=== PATIENT | female | born 1970 | race Two or more races ===

== ENCOUNTER 2018-10-31 21:56 | Inpatient (IN) | payer OTHER ==
[~2018-10-31] VITALS: Ht 170.2 cm; Wt 125.8 kg
[2018-10-31] MEDS ORDERED: ONDANSETRON HCL 4MG/2ML INJ IV STA (22:54)
[2018-10-31] MEDS ORDERED: MORPHINE SULFATE 4 MG/ML CPJ (NOT FOR IM USE) IV STA (22:54)
[2018-10-31] MEDS ORDERED: SODIUM CHLORIDE 0.9% 1,000 ML IV ONE (22:54)
[2018-10-31] MEDS ORDERED: METOCLOPRAMIDE HCL 10MG/2ML VIAL IV ONE (23:45)
[2018-10-31] MEDS ORDERED: LORAZEPAM 2MG/ML CPJ IV ONE (23:45)
[2018-10-31] MEDS ORDERED: ONDANSETRON HCL 4MG/2ML INJ IV ONE (23:45)
[2018-11-01] VITALS (58 sets, daily range): BP systolic 60–177; BP diastolic 37–99
[2018-11-01] LABS: HEMATOCRIT. 26.8 % (36.0-48.0); HEMOGLOBIN. 7.9 g/dL (12.0-16.0); MEAN CORPUSCULAR HEMOGLOBIN 18.8 pg (28.0-32.0); MEAN CORPUSCULAR VOLUME 64.3 fL (81.0-99.0); MEAN PLATELET VOLUME 9.5 fl (7.4-10.4); PLATELET 201 x1000/uL (130-400); RED BLOOD CELL COUNT 4.17 mill/uL (4.2-5.4); RED CELL DISTRIBUTION WIDTH 19.3 % (11.6-14.6)
[2018-11-01 00:03] LABS: PROTHROMBIN TIME 10.5 sec (9.6-11.0)
[2018-11-01 00:12] LABS: CHLORIDE 106 mEq/L (98-107)
[2018-11-01 00:40] LABS: PLATELET ESTIMATE NORMAL
[2018-11-01] MEDS ORDERED: KETOROLAC 30MG/ML VIAL IV ONE (00:45)
[2018-11-01] MEDS ORDERED: HYDROMORPHONE HCL/PF 2MG/ML CPJ IV NR ×2 (01:15→12:45)
[2018-11-01 01:18] LABS: CLARITY URINE CLEAR (CLEAR); COLOR URINE YELLOW (YELLOW); KETONES URINE 3+ (NEGATIVE); LEUKOCYTE ESTERASE URINE NEGATIVE (NEGATIVE); NITRITE URINE NEGATIVE (NEGATIVE); OCCULT BLOOD URINE NEGATIVE (NEGATIVE); PH URINE 5.5 (4.5-8.0); PROTEIN URINE 2+ (NEGATIVE); SPECIFIC GRAVITY URINE 1.032 (1.005-1.030)
[2018-11-01 01:48] LABS: HEMATOCRIT 26.4 % (36.0-48.0); HEMOGLOBIN 7.7 g/dL (12.0-16.0)
[2018-11-01 02:50] LABS: INR 1.1; PARTIAL THROMBOPLASTIN TIME 22.9 sec (23.4-31.0); PROTHROMBIN TIME 10.9 sec (9.6-11.0)
[2018-11-01] MEDS ORDERED: HYDROMORPHONE HCL/PF 2MG/ML CPJ IV PRN (06:00)
[2018-11-01] MEDS ORDERED: PIPERACILLIN/TAZ 3.375G PREMIX 50 ML IV SCH ×2 (06:00→08:00)
[2018-11-01] MEDS ORDERED: ONDANSETRON HCL 4MG/2ML INJ IV PRN (06:00)
[2018-11-01] MEDS: PANTOPRAZOLE SODIUM 40 MG/VIAL IV SCH (07:04)
[2018-11-01] MEDS ORDERED: DEXT 5%/0.45% NACL KCL 20MEQ/L 1,000 ML IV SCH (08:00)
[2018-11-01 10:50] LABS: MEAN CORPUSCULAR VOLUME 67.7 fL (81.0-99.0); MEAN PLATELET VOLUME 9.7 fl (7.4-10.4); PLATELET 226 x1000/uL (130-400); RED BLOOD CELL COUNT 3.68 mill/uL (4.2-5.4); RED CELL DISTRIBUTION WIDTH 19.8 % (11.6-14.6)
[2018-11-01] MEDS ORDERED: IPRATROPIUM/ALBUTEROL 0.5-3(2.5)MG/3ML NEB HHN PRN (11:00)
[2018-11-01] MEDS ORDERED: SODIUM CHLORIDE 0.9% 500 ML IV ONE (11:00)
[2018-11-01] MEDS ORDERED: NOREPINEPHRINE 8 MG in DEXT 5% WATER 492 ML IV PRN (11:00)
[2018-11-01 11:06] LABS: HEMATOCRIT. 24.9 % (36.0-48.0)
[2018-11-01 11:13] LABS: BG BASE EXCESS -16.9 mmol/L (-2.0-2.0); BG CARBOXYHEMOGLOBIN 0.9 % (0.5-1.5); BG DEOXYHEMOGLOBIN 2.8 % (0.0-5.0); BG METHEMOGLOBIN 0.3 % (0.0-1.5); BG OXYGEN SATURATION 97.2 % (92.0-98.5); BG PCO2 27.5 mmHg (35.0-45.0); BG PH 7.178 (7.350-7.450); BG PO2 113.1 mmHg (75.0-100.0); BG SAMPLE SITE RIGHT RADIAL; BG TOTAL HEMOGLOBIN 7.7 g/dL (12.0-18.0); BG VENT MODE NASAL CANNULA
[2018-11-01] MEDS ORDERED: NOREPINEPHRINE BITARTRATE 1MG/ML 4ML IV ONE (11:17)
[2018-11-01] MEDS ORDERED: SODIUM BICARBONATE 8.4% 1 MEQ/ML 50ML SYR IV ONE ×2 (11:22→12:45)
[2018-11-01] MEDS ORDERED: SODIUM BICARBONATE 50 MEQ in DEXTROSE 5% WATER 1,000 ML IV ONE (11:30)
[2018-11-01 11:38] LABS: PLATELET ESTIMATE NORMAL
[2018-11-01] MEDS ORDERED: SODIUM BICARBONATE 8.4% 1 MEQ/ML 50ML SYR IV NR (11:45)
[2018-11-01] MEDS ORDERED: ETOMIDATE 2MG/ML 10ML VIAL IV ONE (11:50)
[2018-11-01] MEDS ORDERED: VECURONIUM BROMIDE 10 MG/VIAL IV ONE (11:50)
[2018-11-01] MEDS ORDERED: SODIUM CHLORIDE 0.9% 10ML VIAL ONE (11:50)
[2018-11-01] MEDS ORDERED: MIDAZOLAM HCL 5 MG/5 ML VIAL IV NR (12:12)
[2018-11-01] MEDS ORDERED: MIDAZOLAM HCL 2 MG/2 ML VIAL ONE (12:17)
[2018-11-01] MEDS ORDERED: ALBUMIN HUMAN 12.5G/250ML (5%) IV ONE (12:36)
[2018-11-01] MEDS ORDERED: LIDOCAINE HCL 1% 20ML VIAL (Pyxis) INJ ONE (12:44)
[2018-11-01] MEDS ORDERED: MIDAZOLAM HCL 2 MG/2 ML VIAL IV ONE (12:45)
[2018-11-01] MEDS ORDERED: CEFAZOLIN SODIUM 1000MG/VIAL ONE (12:55)
[2018-11-01] MEDS ORDERED: ROCURONIUM BROMIDE 10MG/ML VIAL 5ML IV ONE (13:02)
[2018-11-01 14:53] LABS: *AMPHETAMINES SCREEN URINE NEGATIVE (NEGATIVE)
[2018-11-01 14:54] LABS: *BARBITURATES SCREEN URINE NEGATIVE (NEGATIVE); *BENZODIAZEPINES SCREEN URINE NEGATIVE (NEGATIVE); *COCAINE SCREEN URINE NEGATIVE (NEGATIVE); METHADONE URINE SCREEN NEGATIVE (NEGATIVE)
[2018-11-01 14:55] LABS: CANNABINOID URINE SCREEN PRESUMTIVE POSITIVE (NEGATIVE); OPIATES URINE SCREEN PRESUMTIVE POSITIVE (NEGATIVE); PHENCYCLIDINE URINE SCREEN NEGATIVE (NEGATIVE)
[2018-11-01] MEDS: NACL IV SCH (15:21)
[2018-11-01] MEDS: DEXT IV SCH (15:21)
[2018-11-01] MEDS: SODIUM BICARBONATE IV SCH (15:21)
[2018-11-01 15:34] LABS: BASOPHILS % 0.3 % (0.0-2.0); HEMATOCRIT. 32.4 % (36.0-48.0); HEMOGLOBIN. 10.1 g/dL (12.0-16.0); LYMPHOCYTES % 16.7 % (20.0-50.0); MEAN CORPUSCULAR HEMOGLOBIN 23.4 pg (28.0-32.0); MEAN CORPUSCULAR VOLUME 74.8 fL (81.0-99.0); MEAN PLATELET VOLUME 9.9 fl (7.4-10.4); MONOCYTES % 2.2 % (2.0-8.0); NEUTROPHILS % 80.8 % (40.0-76.0); PLATELET 129 x1000/uL (130-400); RED BLOOD CELL COUNT 4.32 mill/uL (4.2-5.4); RED CELL DISTRIBUTION WIDTH 24.1 % (11.6-14.6)
[2018-11-01 15:37] LABS: UCG SCREEN NEGATIVE
[2018-11-01] MEDS ORDERED: VANCOMYCIN 2,000 MG in DEXT 5% WATER 500 ML IV NR (16:00)
[2018-11-01 16:02] LABS: PLATELET ESTIMATE SLIGHTLY DECREASED
[2018-11-01 16:17] LABS: BG BASE EXCESS -11.5 mmol/L (-2.0-2.0); BG CARBOXYHEMOGLOBIN 0.7 % (0.5-1.5); BG DEOXYHEMOGLOBIN 0.3 % (0.0-5.0); BG FRACTION INSPIRED OXYGEN 100; BG METHEMOGLOBIN 0.1 % (0.0-1.5); BG OXYGEN SATURATION 99.7 % (92.0-98.5); BG OXYHEMOGLOBIN 98.9 % (94.0-97.0); BG PCO2 30.3 mmHg (35.0-45.0); BG PH 7.281 (7.350-7.450); BG PO2 562.4 mmHg (75.0-100.0); BG SAMPLE SITE A-LINE; BG TIDAL VOLUME(mL) 500 mL; BG TOTAL HEMOGLOBIN 11.6 g/dL (12.0-18.0); BG VENT MODE VENT - A/C; BG VENT RATE 12 set
[2018-11-01] MEDS: PROPOFOL 10MG/ML 100ML 100 ML IV PRN (16:38)
[2018-11-01] MEDS ORDERED: PHYTONADIONE 10MG/ML AMP SUBCUT NR (17:45)
[2018-11-01] MEDS: INSULIN LISPRO 100 UNITS/ML SUBCUT SCH (18:00)
[2018-11-01] MEDS ORDERED: AMIKACIN SULFATE 250 MG in SODIUM CHLORIDE 0.9% 100 ML IV NR (18:00)
[2018-11-01 18:05] LABS: HEMATOCRIT 32.5 % (36.0-48.0); HEMOGLOBIN 10.3 g/dL (12.0-16.0)
[2018-11-01] MEDS: BLOOD SUGAR DIAGNOSTIC STRIP TEST SCH ×2 (18:05→18:06)
[2018-11-01 18:07] LABS: CHLORIDE 114 mEq/L (98-107)
[2018-11-01 18:13] LABS: PHOSPHORUS 4.4 mg/dL (2.5-4.9)
[2018-11-01 18:33] LABS: D-DIMER 15.39 mg/L FEU (<0.50); INR 1.1; PARTIAL THROMBOPLASTIN TIME 29.1 sec (23.4-31.0); PROTHROMBIN TIME 11.7 sec (9.6-11.0)
[2018-11-01] MEDS ORDERED: WATER IV PRN (20:32)
[2018-11-01] MEDS ORDERED: DEXT 5% IV PRN (20:32)
[2018-11-01] MEDS ORDERED: NOREPINEPHRINE IV PRN (20:32)
[2018-11-01] MEDS: IPRATROPIUM/ALBUTEROL 0.5-3(2.5)MG/3ML NEB HHN SCH (20:34)
[2018-11-01 23:38] LABS: HEMOGLOBIN 12.5 g/dL (12.0-16.0)
[2018-11-02] VITALS (104 sets, daily range): BP systolic 29–258; BP diastolic 16–206
[2018-11-02] MEDS: MEROPENEM 1,000 MG in SODIUM CHLORIDE 0.9% 100 ML IV SCH ×3 (00:04→21:41)
[2018-11-02] MEDS: DEXT IV SCH ×3 (00:16→19:09)
[2018-11-02] MEDS: SODIUM BICARBONATE IV SCH ×3 (00:16→19:09)
[2018-11-02] MEDS: PROPOFOL 10MG/ML 100ML 100 ML IV PRN ×3 (00:16→11:30)
[2018-11-02] MEDS: NACL IV SCH ×3 (00:16→19:09)
[2018-11-02] MEDS: IPRATROPIUM/ALBUTEROL 0.5-3(2.5)MG/3ML NEB HHN SCH ×2 (00:29→20:44)
[2018-11-02] MEDS: BLOOD SUGAR DIAGNOSTIC STRIP TEST SCH ×5 (00:36→18:00)
[2018-11-02] MEDS: NOREPINEPHRINE 32 MG in DEXT 5% WATER 468 ML IV PRN (02:23)
[2018-11-02] MEDS ORDERED: ALBUMIN HUMAN 25GM/500ML (5%) IV NR (03:00)
[2018-11-02] MEDS ORDERED: DEXT 10% WATER 1,000 ML IV SCH (03:45)
[2018-11-02] MEDS: DEXTROSE 50% WATER 50ML SYRINGE IV PRN ×2 (03:58→06:23)
[2018-11-02] MEDS ORDERED: DEXTROSE 50% WATER 50ML SYRINGE IV NR (04:00)
[2018-11-02] MEDS: PHENYLEPHRINE 80 MG in DEXT 5% WATER 492 ML IV PRN ×3 (05:12→19:10)
[2018-11-02] MEDS: VASOPRESSIN 10 UNIT in SODIUM CHLORIDE 0.9% 99.5 ML IV SCH ×5 (05:28→21:42)
[2018-11-02 05:49] LABS: HEMATOCRIT. 32.5 % (36.0-48.0); HEMOGLOBIN. 9.8 g/dL (12.0-16.0); MEAN CORPUSCULAR HEMOGLOBIN 23.7 pg (28.0-32.0); MEAN CORPUSCULAR VOLUME 78.3 fL (81.0-99.0); RED BLOOD CELL COUNT 4.15 mill/uL (4.2-5.4)
[2018-11-02 05:53] LABS: CHLORIDE 115 mEq/L (98-107)
[2018-11-02] MEDS: INSULIN LISPRO 100 UNITS/ML SUBCUT SCH ×3 (06:00→12:00)
[2018-11-02 06:15] LABS: LDL CHOLESTEROL 30 mg/dL (5-100)
[2018-11-02 06:16] LABS: HDL CHOLESTEROL 36 mg/dL (40-59); T4 FREE 1.25 ng/dL (0.76-1.46)
[2018-11-02] MEDS ORDERED: DEXTROSE 50% WATER 50ML SYRINGE IV ONE (06:30)
[2018-11-02 07:28] LABS: PLATELET 84 x1000/uL (130-400)
[2018-11-02 07:33] LABS: NUCLEATED RED BLOOD CELLS 3 /100 WBC
[2018-11-02 07:34] LABS: PLATELET ESTIMATE DECREASED
[2018-11-02] MEDS ORDERED: SODIUM CHLORIDE 10% FOR INH 15ML VIAL NEB INH SCH (08:00)
[2018-11-02] MEDS ORDERED: VANCOMYCIN 1250MG in DEXTROSE 5% WATER 250ML IV SCH (08:00)
[2018-11-02] MEDS: PANTOPRAZOLE SODIUM 40 MG/VIAL IV SCH (08:31)
[2018-11-02 09:02] LABS: BG CARBOXYHEMOGLOBIN 0.3 % (0.5-1.5); BG FRACTION INSPIRED OXYGEN 100; BG HCO3 ACT 9.8 mmol/L (22.0-26.0); BG OXYHEMOGLOBIN 95.7 % (94.0-97.0); BG PH 7.289 (7.350-7.450); BG PO2 89.5 mmHg (75.0-100.0); BG SAMPLE SITE A-LINE; BG TIDAL VOLUME(mL) 500 mL; BG TOTAL HEMOGLOBIN 9.9 g/dL (12.0-18.0); BG VENT MODE VENT - A/C; BG VENT RATE 12 set
[2018-11-02] MEDS ORDERED: SODIUM BICARBONATE 8.4% 1 MEQ/ML 50ML SYR IV SCH ×2 (10:30)
[2018-11-02] MEDS ORDERED: SODIUM BICARBONATE 8.4% 1 MEQ/ML 50ML SYR IV ONE (10:34)
[2018-11-02 12:37] LABS: BG BASE EXCESS -13.4 mmol/L (-2.0-2.0); BG CARBOXYHEMOGLOBIN 0.3 % (0.5-1.5); BG DEOXYHEMOGLOBIN 9.3 % (0.0-5.0); BG FRACTION INSPIRED OXYGEN 100; BG HCO3 ACT 11.9 mmol/L (22.0-26.0); BG METHEMOGLOBIN 0.1 % (0.0-1.5); BG OXYGEN SATURATION 90.7 % (92.0-98.5); BG OXYHEMOGLOBIN 90.3 % (94.0-97.0); BG PCO2 25.7 mmHg (35.0-45.0); BG PH 7.282 (7.350-7.450); BG PO2 63.5 mmHg (75.0-100.0); BG SAMPLE SITE RIGHT RADIAL; BG TIDAL VOLUME(mL) 500 mL; BG TOTAL HEMOGLOBIN 9.9 g/dL (12.0-18.0); BG VENT MODE VENT - A/C; BG VENT RATE 12 set
[2018-11-02 13:29] LABS: HEMATOCRIT 26.8 % (36.0-48.0); HEMOGLOBIN 8.9 g/dL (12.0-16.0)
[2018-11-02] MEDS ORDERED: HYDROCORTISONE SOD SUCCINATE 100 MG/2 ML VIAL IV SCH ×2 (13:45→21:00)
[2018-11-02 14:29] LABS: BG BASE EXCESS -14.7 mmol/L (-2.0-2.0); BG CARBOXYHEMOGLOBIN 0.1 % (0.5-1.5); BG DEOXYHEMOGLOBIN 9.9 % (0.0-5.0); BG FRACTION INSPIRED OXYGEN 100; BG HCO3 ACT 10.5 mmol/L (22.0-26.0); BG OXYGEN SATURATION 90.1 % (92.0-98.5); BG PCO2 23.3 mmHg (35.0-45.0); BG PH 7.272 (7.350-7.450); BG PO2 65.4 mmHg (75.0-100.0); BG SAMPLE SITE A-LINE; BG TOTAL HEMOGLOBIN 9.6 g/dL (12.0-18.0); BG VENT MODE VENT - PCV; BG VENT RATE 20 set
[2018-11-02] MEDS ORDERED: VANCOMYCIN 1500MG in DEXTROSE 5% WATER 250ML IV SCH (15:00)
[2018-11-02] MEDS ORDERED: SODIUM BICARBONATE 8.4% 1 MEQ/ML 50ML SYR IV NR (16:15)
[2018-11-02] MEDS: DEXT 10% WATER 1,000 ML IV SCH (17:06)
[2018-11-02] MEDS ORDERED: PROPOFOL 10MG/ML 100ML 100 ML IV PRN (17:45)
[2018-11-03] VITALS (118 sets, daily range): BP systolic 38–170; BP diastolic -17–66
[2018-11-03] MEDS: IPRATROPIUM/ALBUTEROL 0.5-3(2.5)MG/3ML NEB HHN SCH ×5 (00:18→20:46)
[2018-11-03] MEDS: NOREPINEPHRINE 32 MG in DEXT 5% WATER 468 ML IV PRN (01:39)
[2018-11-03] MEDS: PHENYLEPHRINE 80 MG in DEXT 5% WATER 492 ML IV PRN ×2 (01:40→17:31)
[2018-11-03] MEDS: NACL IV SCH ×2 (01:41→05:49)
[2018-11-03] MEDS: SODIUM BICARBONATE IV SCH ×2 (01:41→05:49)
[2018-11-03] MEDS: DEXT IV SCH ×2 (01:41→05:49)
[2018-11-03 05:56] LABS: HEMATOCRIT. 30.9 % (36.0-48.0); HEMOGLOBIN. 9.7 g/dL (12.0-16.0); MEAN CORPUSCULAR HEMOGLOBIN 24.9 pg (28.0-32.0); MEAN CORPUSCULAR VOLUME 78.8 fL (81.0-99.0); RED BLOOD CELL COUNT 3.92 mill/uL (4.2-5.4); RED CELL DISTRIBUTION WIDTH 22.1 % (11.6-14.6)
[2018-11-03 06:01] LABS: INR 2.5; PROTHROMBIN TIME 25.2 sec (9.6-11.0)
[2018-11-03 06:12] LABS: CHLORIDE 98 mEq/L (98-107)
[2018-11-03] MEDS: DEXT 10% WATER 1,000 ML IV SCH (06:14)
[2018-11-03] MEDS: HYDROCORTISONE SOD SUCCINATE 100 MG/2 ML VIAL IV SCH ×3 (06:14→17:29)
[2018-11-03] MEDS: VASOPRESSIN 10 UNIT in SODIUM CHLORIDE 0.9% 99.5 ML IV SCH ×4 (06:15→20:44)
[2018-11-03 07:27] LABS: PLATELET 56 x1000/uL (130-400)
[2018-11-03 07:39] LABS: NUCLEATED RED BLOOD CELLS 3 /100 WBC; PLATELET ESTIMATE DECREASED
[2018-11-03 07:50] LABS: PHOSPHORUS 8.5 mg/dL (2.5-4.9)
[2018-11-03] MEDS ORDERED: SODIUM BICARBONATE 8.4% 1 MEQ/ML 50ML SYR IV SCH ×3 (08:00→13:00)
[2018-11-03 08:34] LABS: BG BASE EXCESS -20.6 mmol/L (-2.0-2.0); BG CARBOXYHEMOGLOBIN 0.1 % (0.5-1.5); BG DEOXYHEMOGLOBIN 4.2 % (0.0-5.0); BG HCO3 ACT 6.9 mmol/L (22.0-26.0); BG METHEMOGLOBIN 0.4 % (0.0-1.5); BG OXYGEN SATURATION 95.8 % (92.0-98.5); BG OXYHEMOGLOBIN 95.3 % (94.0-97.0); BG PCO2 21.6 mmHg (35.0-45.0); BG PH 7.125 (7.350-7.450); BG PIP 30 cmH2O; BG PO2 101.1 mmHg (75.0-100.0); BG SAMPLE SITE A-LINE; BG TOTAL HEMOGLOBIN 9.8 g/dL (12.0-18.0); BG VENT MODE VENT - PCV; BG VENT RATE 20 set
[2018-11-03] MEDS: PANTOPRAZOLE SODIUM 40 MG/VIAL IV SCH (09:17)
[2018-11-03] MEDS: MEROPENEM 1,000 MG in SODIUM CHLORIDE 0.9% 100 ML IV SCH ×2 (09:17→20:43)
[2018-11-03] MEDS ORDERED: FLUCONAZOLE 200MG/100ML PREMIX IV SCH (10:00)
[2018-11-03] MEDS ORDERED: CALCIUM GLUCONATE 100MG/ML 10ML VIAL IV ONE (12:15)
[2018-11-03] MEDS: SODIUM BICARBONATE 150 MEQ in DEXTROSE 5% WATER 850 ML IV SCH ×2 (12:23→14:22)
[2018-11-03] MEDS ORDERED: CALCIUM GLUCONATE 1000 MG in DEXTROSE 5% WATER 100 ML IV SCH (12:30)
[2018-11-03 12:32] LABS: BG BASE EXCESS -18.1 mmol/L (-2.0-2.0); BG CARBOXYHEMOGLOBIN 0.3 % (0.5-1.5); BG DEOXYHEMOGLOBIN 4.5 % (0.0-5.0); BG FRACTION INSPIRED OXYGEN 100; BG HCO3 ACT 9.5 mmol/L (22.0-26.0); BG METHEMOGLOBIN 0.3 % (0.0-1.5); BG OXYGEN SATURATION 95.5 % (92.0-98.5); BG OXYHEMOGLOBIN 94.9 % (94.0-97.0); BG PCO2 28.4 mmHg (35.0-45.0); BG PO2 97.9 mmHg (75.0-100.0); BG SAMPLE SITE A-LINE; BG TOTAL HEMOGLOBIN 9.7 g/dL (12.0-18.0); BG VENT MODE VENT - PCV; BG VENT RATE 20 set
[2018-11-03] MEDS ORDERED: PHYTONADIONE 10 MG in DEXTROSE 5% WATER 49 ML IV SCH (15:00)
[2018-11-03] MEDS: FLUCONAZOLE 200 MG/100ML BAG 100 ML IV SCH (17:32)
[2018-11-03] MEDS: DEXTROSE 50% WATER 50ML SYRINGE IV PRN (18:13)
[2018-11-03 18:14] LABS: BG CARBOXYHEMOGLOBIN 0.3 % (0.5-1.5); BG DEOXYHEMOGLOBIN 1.9 % (0.0-5.0); BG HCO3 ACT 12.5 mmol/L (22.0-26.0); BG METHEMOGLOBIN 0.5 % (0.0-1.5); BG OXYGEN SATURATION 98.1 % (92.0-98.5); BG OXYHEMOGLOBIN 97.3 % (94.0-97.0); BG PCO2 31.3 mmHg (35.0-45.0); BG PH 7.218 (7.350-7.450); BG PO2 141.1 mmHg (75.0-100.0); BG SAMPLE SITE A-LINE; BG TIDAL VOLUME(mL) 450 mL; BG TOTAL HEMOGLOBIN 10.4 g/dL (12.0-18.0); BG VENT MODE VENT - PCV; BG VENT RATE 28 set
[2018-11-03] MEDS ORDERED: PROPOFOL 10MG/ML 100ML 100 ML IV SCH (19:00)
[2018-11-04] VITALS (48 sets, daily range): BP systolic 29–146; BP diastolic 3–135
[2018-11-04] MEDS: IPRATROPIUM/ALBUTEROL 0.5-3(2.5)MG/3ML NEB HHN SCH ×2 (02:16→08:14)
[2018-11-04] MEDS: NOREPINEPHRINE 32 MG in DEXT 5% WATER 468 ML IV PRN (04:06)
[2018-11-04] MEDS: HYDROCORTISONE SOD SUCCINATE 100 MG/2 ML VIAL IV SCH ×2 (04:07→06:34)
[2018-11-04] MEDS: VASOPRESSIN 10 UNIT in SODIUM CHLORIDE 0.9% 99.5 ML IV SCH ×2 (04:09→05:23)
[2018-11-04] MEDS ORDERED: ALBUMIN HUMAN 25GM/100ML (25%) IV NR (04:30)
[2018-11-04 04:38] LABS: BG BASE EXCESS -23.6 mmol/L (-2.0-2.0); BG CARBOXYHEMOGLOBIN 0.5 % (0.5-1.5); BG DEOXYHEMOGLOBIN 3.1 % (0.0-5.0); BG FRACTION INSPIRED OXYGEN 100; BG HCO3 ACT 7.2 mmol/L (22.0-26.0); BG METHEMOGLOBIN 0.9 % (0.0-1.5); BG OXYGEN SATURATION 96.9 % (92.0-98.5); BG OXYHEMOGLOBIN 95.5 % (94.0-97.0); BG PCO2 34.9 mmHg (35.0-45.0); BG PH 6.931 (7.350-7.450); BG PIP 30 cmH2O; BG PO2 122.1 mmHg (75.0-100.0); BG SAMPLE SITE A-LINE; BG TOTAL HEMOGLOBIN 7.9 g/dL (12.0-18.0); BG VENT MODE VENT - PCV; BG VENT RATE 32 set
[2018-11-04] MEDS ORDERED: ALBUMIN HUMAN 25GM/500ML (5%) IV NR (04:45)
[2018-11-04] MEDS ORDERED: SODIUM BICARBONATE 8.4% 1 MEQ/ML 50ML SYR IV NR ×2 (05:00→07:15)
[2018-11-04 05:34] LABS: INR 2.2; PROTHROMBIN TIME 22.1 sec (9.6-11.0)
[2018-11-04 05:38] LABS: MEAN CORPUSCULAR HEMOGLOBIN 24.7 pg (28.0-32.0); MEAN CORPUSCULAR VOLUME 80.3 fL (81.0-99.0); MEAN PLATELET VOLUME 9.4 fl (7.4-10.4); RED BLOOD CELL COUNT 2.46 mill/uL (4.2-5.4); RED CELL DISTRIBUTION WIDTH 22.5 % (11.6-14.6)
[2018-11-04] MEDS: DEXT 10% WATER 1,000 ML IV SCH (05:40)
[2018-11-04 05:42] LABS: CHLORIDE 94 mEq/L (98-107)
[2018-11-04 06:12] LABS: BG CARBOXYHEMOGLOBIN 0.9 % (0.5-1.5); BG DEOXYHEMOGLOBIN 12.1 % (0.0-5.0); BG FRACTION INSPIRED OXYGEN 100; BG HCO3 ACT 9.3 mmol/L (22.0-26.0); BG METHEMOGLOBIN 0.5 % (0.0-1.5); BG OXYGEN SATURATION 87.7 % (92.0-98.5); BG OXYHEMOGLOBIN 86.5 % (94.0-97.0); BG PH 6.962 (7.350-7.450); BG PIP 36 cmH2O; BG PO2 72.3 mmHg (75.0-100.0); BG SAMPLE SITE A-LINE; BG TOTAL HEMOGLOBIN 6.8 g/dL (12.0-18.0); BG VENT MODE VENT - PCV; BG VENT RATE 32 set
[2018-11-04 06:25] LABS: CREATINE KINASE 5013 IU/L (26-192)
[2018-11-04] MEDS ORDERED: SODIUM BICARBONATE 8.4% 1 MEQ/ML 50ML SYR IV SCH (06:30)
[2018-11-04 06:37] LABS: HEMOGLOBIN. 6.1 g/dL (12.0-16.0)
[2018-11-04 06:38] LABS: HEMATOCRIT. 19.7 % (36.0-48.0)
[2018-11-04 06:39] LABS: PLATELET 34 x1000/uL (130-400)
[2018-11-04] MEDS ORDERED: SODIUM BICARBONATE 8.4% 1 MEQ/ML 50ML SYR IV ONE ×2 (07:11→07:30)
[2018-11-04 08:27] LABS: BG BASE EXCESS -15.3 mmol/L (-2.0-2.0); BG DEOXYHEMOGLOBIN 16.4 % (0.0-5.0); BG METHEMOGLOBIN 0.8 % (0.0-1.5); BG OXYGEN SATURATION 83.3 % (92.0-98.5); BG OXYHEMOGLOBIN 81.8 % (94.0-97.0); BG PCO2 43.2 mmHg (35.0-45.0); BG PH 7.097 (7.350-7.450); BG PO2 58.3 mmHg (75.0-100.0); BG SAMPLE SITE A-LINE; BG TOTAL HEMOGLOBIN 6.1 g/dL (12.0-18.0); BG VENT MODE VENT - PCV; BG VENT RATE 32 set
[2018-11-04] MEDS: FLUCONAZOLE 200 MG/100ML BAG 100 ML IV SCH (08:31)
[2018-11-04] MEDS: MEROPENEM 1,000 MG in SODIUM CHLORIDE 0.9% 100 ML IV SCH (08:31)
[2018-11-04] MEDS: PANTOPRAZOLE SODIUM 40 MG/VIAL IV SCH (08:31)
[2018-11-04] MEDS ORDERED: ALBUMIN HUMAN 25GM/100ML (25%) IV ONE (08:45)
[2018-11-04] MEDS: PHENYLEPHRINE 80 MG in DEXT 5% WATER 492 ML IV PRN (08:48)
[2018-11-04 09:56] LABS: NUCLEATED RED BLOOD CELLS 9 /100 WBC; PLATELET ESTIMATE MARKEDLY DECREASED
[2018-11-04] MEDS ORDERED: ALBUMIN HUMAN 25GM/500ML (5%) IV SCH (10:00)
[2018-11-04] MEDS ORDERED: SODIUM BICARBONATE 7.5% 0.9 MEQ/ML 50ML SYR IV ONE (13:48)
[2018-11-04] MEDS ORDERED: CALCIUM CHLORIDE 1GM/10ML SYR IV ONE (13:48)
[2018-11-04] MEDS ORDERED: DEXTROSE 50% WATER 50ML SYRINGE IV ONE (13:48)
[2018-11-04] MEDS ORDERED: ATROPINE SULFATE 1MG/10ML SYR ONE (13:48)
[2018-11-04] MEDS ORDERED: EPINEPHRINE 0.1MG/ML (1:10,000) 10ML SYR ONE (13:48)
== END 2018-11-04 10:38 | disposition expired | DRG 853 ==
LOC: ER 21:56 → 3WST 11-01 02:50 → EDBEDREQSVC 11-01 02:57 → EDBEDREQTM 11-01 02:57 → EDBEDREQ 11-01 02:57 → ENRESERV 11-01 03:04 → CVICU 11-01 08:48
PROVIDERS: ADMIT Internal Medicine; ATTEND Internal Medicine
PROC: 0DN80ZZ Release Small Intestine, Open Approach (ICD-10-PCS; principal; 2018-11-01)
PROC: 30233K1 Transfusion of Nonautologous Frozen Plasma into Peripheral Vein, Percutaneous Approach (ICD-10-PCS; 2018-11-01)
PROC: 30233N1 Transfusion of Nonautologous Red Blood Cells into Peripheral Vein, Percutaneous Approach (ICD-10-PCS; 2018-11-01)
PROC: 5A1945Z Respiratory Ventilation, 24-96 Consecutive Hours (ICD-10-PCS; 2018-11-01)
PROC: 0BH17EZ Insertion of Endotracheal Airway into Trachea, Via Natural or Artificial Opening (ICD-10-PCS; 2018-11-01)
PROC: 02HV33Z Insertion of Infusion Device into Superior Vena Cava, Percutaneous Approach (ICD-10-PCS; 2018-11-01)
PROC: 30233R1 Transfusion of Nonautologous Platelets into Peripheral Vein, Percutaneous Approach (ICD-10-PCS; 2018-11-03)
PROC: 02HV33Z Insertion of Infusion Device into Superior Vena Cava, Percutaneous Approach (ICD-10-PCS; 2018-11-03)
PROC: B548ZZA Ultrasonography of Superior Vena Cava, Guidance (ICD-10-PCS; 2018-11-03)
PROC: 5A1D70Z Performance of Urinary Filtration, Intermittent, Less than 6 Hours Per Day (ICD-10-PCS; 2018-11-03)
PROC: 5A1D70Z Performance of Urinary Filtration, Intermittent, Less than 6 Hours Per Day (ICD-10-PCS; 2018-11-04)
DX: A41.9 Sepsis, unspecified organism (principal); J96.01 Acute respiratory failure with hypoxia; K55.029 Acute infarction of small intestine, extent unspecified; K56.2 Volvulus; K72.00 Acute and subacute hepatic failure without coma; R65.21 Severe sepsis with septic shock; D68.9 Coagulation defect, unspecified; E87.2 Acidosis; J98.11 Atelectasis; N17.9 Acute kidney failure, unspecified; K56.609 Unspecified intestinal obstruction, unspecified as to partial versus complete obstruction; D64.9 Anemia, unspecified; D69.6 Thrombocytopenia, unspecified; E03.9 Hypothyroidism, unspecified; E86.1 Hypovolemia; E87.5 Hyperkalemia; M06.9 Rheumatoid arthritis, unspecified; M19.90 Unspecified osteoarthritis, unspecified site; R73.9 Hyperglycemia, unspecified; J45.909 Unspecified asthma, uncomplicated; Z98.84 Bariatric surgery status
CPT/HCPCS: 36415; 36569; 36600; 71045; 74018; 74176; 76700; 76937; 80048; 80061; 80202; 80305; 81025; 82330; 82375; 82533; 82550; 82805; 82962; 83036; 83605; 83735; 84100; 84439; 84443; 84478; 85014; 85018; 85362; 85379; 85384; 86850; 86900; 86920; 86927; 87070; 88307; 93970; 94003; 94640; 96361; 96374; 96375; 99285; C1752; C9113; J0278; J0461; J0610; J0690; J1170; J1450; J1720; J1885; J2060; J2185; J2250; J2270; J2370; J2405; J2543; J2704; J2765; J3370; J3430; J3490; J7030; J7040; J7050; J7060; J7070; J7131; J7620; P9016; P9017; P9034; P9041; P9047; A4315